=== PATIENT | female | born 1970 | race Caucasian/White ===

== ENCOUNTER → 2017-02-04 | Outpatient (CLI) | payer MEDICARE, BC, MEDICAID ==
[~2017-02-04] MED LIST: ASPI-621 PO; ATOR20TA9 PO; CABE0.5T PO; CARV3.122 PO; CRAN300T PO; DARB60VI SQ; ERGO500047 PO; ISOS30TA8 PO; LINA5TAB PO; LOSA50TA6 PO; OMEP-110 PO; PIOG15TA2 PO; SEVE800T8 PO; VITA1TAB19 PO
== END | disposition home or self-care (01) ==
LOC: CFH 08:47
PROVIDERS: ATTEND Internal Medicine
DX: I08.3 Combined rheumatic disorders of mitral, aortic and tricuspid valves (principal); I37.1 Nonrheumatic pulmonary valve insufficiency; I51.7 Cardiomegaly; I10 Essential (primary) hypertension; E11.9 Type 2 diabetes mellitus without complications; Z99.2 Dependence on renal dialysis
CPT/HCPCS: 93306

== ENCOUNTER → 2017-07-11 | Outpatient (CLI) | payer MEDICARE, BC, MEDICAID | END | disposition home or self-care (01) | LOC: CFH 13:08 | PROVIDERS: ATTEND Obstetrics & Gynecology Maternal & Fetal Medicine | DX: Z12.31 Encounter for screening mammogram for malignant neoplasm of breast (principal) | CPT/HCPCS: G0202 ==

== ENCOUNTER 2017-08-25 10:05 | Inpatient (IN) | payer MEDICARE, BC, MEDICAID ==
[~2017-08-25] VITALS: Ht 157.5 cm; Wt 57.4 kg
[2017-08-25] MEDS ORDERED: ACETAMINOPHEN 325 MG TABLET PO ONE (11:00)
[2017-08-25 11:16] LABS: HEMATOCRIT 36.1 % (34.6-47.8); HEMOGLOBIN 12.3 g/dL (11.7-16.4); WHITE BLOOD COUNT 13.3 x10^3/uL (3.4-10)
[2017-08-25 11:30] LABS: BLOOD UREA NITROGEN 27 mg/dL (7-18)
[2017-08-25 11:33] LABS: DIFF TOTAL CELLS COUNTED 100 CELL DIFF
[2017-08-25 11:34] LABS: VERIFY COUNTS? YES
[2017-08-25 11:36] LABS: ASPARTATE AMINO TRANSFERASE 106 U/L (15-37)
[2017-08-25] MEDS ORDERED: CEFTRIAXONE PMX 1GM/50ML 50 ML IVPB ONE (12:00)
[2017-08-25] MEDS ORDERED: SODIUM CHLORIDE 0.9% 1,000ML IVBOLUS ONE (12:00)
[2017-08-25] MEDS ORDERED: CEFTRIAXONE PMX 1GM/50ML 50 ML ONE (12:51)
[2017-08-25 13:25] VITALS: BP 106/71
[2017-08-25] MEDS ORDERED: SODIUM CHLORIDE 0.9% 1,000 ML IV SCH (13:55)
[2017-08-25] MEDS ORDERED: POLYETHYLENE GLYCOL 17 GM PACKET PO PRN (14:00)
[2017-08-25] MEDS ORDERED: BISACODYL 10 MG SUPP PR PRN (14:00)
[2017-08-25] MEDS ORDERED: LABETALOL 5MG/ML, 20ML IVPush PRN (14:00)
[2017-08-25] MEDS ORDERED: hydrALAzine 20 MG/ML, 1ML IVPush PRN (14:00)
[2017-08-25] MEDS ORDERED: HYDROmorphone 2 MG/ML, 1ML IVPush PRN (14:00)
[2017-08-25] MEDS ORDERED: PHARMACY MAY ADJ FOR RENAL FX MC PRN (14:00)
[2017-08-25] MEDS ORDERED: SENN1TAB7 PO (14:29)
[2017-08-25] MEDS ORDERED: PRED5TAB PO (14:29)
[2017-08-25] MEDS ORDERED: CHOL100012 PO (14:29)
[2017-08-25] MEDS ORDERED: CARV3.122 PO (14:29)
[2017-08-25] MEDS ORDERED: MULT-108 PO (14:29)
[2017-08-25] MEDS ORDERED: METF500T4 PO (14:29)
[2017-08-25] MEDS ORDERED: TACR1CAP2 PO (14:29)
[2017-08-25] MEDS ORDERED: MYCO250C4 PO (14:29)
[2017-08-25] MEDS ORDERED: LIRA0.6P2 IJ (14:29)
[2017-08-25] MEDS ORDERED: PANT20TA3 PO (14:29)
[2017-08-25] MEDS ORDERED: GLUCAGON 1 MG IM PRN (14:30)
[2017-08-25] MEDS ORDERED: DEXTROSE 50%, 50ML SYRINGE IVPush PRN (14:30)
[2017-08-25] MEDS ORDERED: DEXTROSE 4 GM TAB.CHEW PO PRN (14:30)
[2017-08-25] MEDS: PIPERACILLIN/TAZO/PMX 4.5GM 100 ML IV SCH ×2 (15:10→20:37)
[2017-08-25] MEDS: HEPARIN 5,000 UNITS/ML, 1ML SQ SCH ×2 (15:22→20:38)
[2017-08-25 15:30] LABS: BLOOD UREA NITROGEN 28 mg/dL (7-18)
[2017-08-25] MEDS: INSULIN ASPART 100 UNITS/ML, PEN SQ-INSULIN SCH ×2 (15:36→20:51)
[2017-08-25] MEDS: ONDANSETRON 2MG/ML, 2ML IVPush PRN (15:51)
[2017-08-25] MEDS ORDERED: CARVEDILOL 3.125 MG TABLET PO SCH (18:00)
[2017-08-25] MEDS: HYDROcodone/APAP 5/325 TABLET PO PRN ×2 (18:07→23:09)
[2017-08-25 19:36] VITALS: BP 95/58
[2017-08-25] MEDS: TACROLIMUS 1 MG CAPSULE PO SCH (20:37)
[2017-08-25] MEDS: SODIUM CHLORIDE FLUSH 10ML SYR IVF SCH (20:37)
[2017-08-25] MEDS: ATORVASTATIN 20 MG TABLET PO SCH (20:37)
[2017-08-25] MEDS ORDERED: MYCOPHENOLATE PO SCH (21:00)
[2017-08-25 21:46] LABS: BLOOD UREA NITROGEN 25 mg/dL (7-18)
[2017-08-26] MEDS: PIPERACILLIN/TAZO/PMX 4.5GM 100 ML IV SCH ×4 (02:06→22:34)
[2017-08-26 02:09] VITALS: BP 94/59
[2017-08-26] MEDS: ACETAMINOPHEN 325 MG TABLET PO PRN (02:09)
[2017-08-26 04:41] LABS: HEMOGLOBIN 10.4 g/dL (11.7-16.4); WHITE BLOOD COUNT 8.9 x10^3/uL (3.4-10)
[2017-08-26 04:49] LABS: BLOOD UREA NITROGEN 22 mg/dL (7-18)
[2017-08-26 04:52] LABS: ASPARTATE AMINO TRANSFERASE 62 U/L (15-37)
[2017-08-26] MEDS: HEPARIN 5,000 UNITS/ML, 1ML SQ SCH ×3 (06:16→23:58)
[2017-08-26] MEDS: INSULIN ASPART 100 UNITS/ML, PEN SQ-INSULIN SCH ×4 (07:00→21:03)
[2017-08-26 07:09] VITALS: BP 94/57
[2017-08-26] MEDS: ASPIRIN 81 MG TABLET EC PO SCH (08:10)
[2017-08-26] MEDS: SODIUM CHLORIDE FLUSH 10ML SYR IVF SCH ×2 (08:10→21:03)
[2017-08-26] MEDS: HYDROcodone/APAP 5/325 TABLET PO PRN ×2 (08:10→19:50)
[2017-08-26] MEDS: MULTIVITAMIN 1 TABLET PO SCH (08:10)
[2017-08-26] MEDS: DOCUSATE 100 MG CAPSULE PO SCH (08:10)
[2017-08-26] MEDS: CHOLECALCIFEROL 1,000 UNIT TABLET PO SCH (08:10)
[2017-08-26] MEDS: ONDANSETRON 2MG/ML, 2ML IVPush PRN ×2 (08:18→17:38)
[2017-08-26] MEDS: TACROLIMUS 1 MG CAPSULE PO SCH ×2 (08:57→21:02)
[2017-08-26] MEDS ORDERED: MAGNESIUM SULFATE PMX 4GM/100M 100 ML IV ONE (12:00)
[2017-08-26] MEDS ORDERED: SODIUM PHOSPHATE 30 MMOL in SODIUM CHLORIDE 0.9% 500 ML IV ONE (12:00)
[2017-08-26 13:13] VITALS: BP 113/73
[2017-08-26 14:48] VITALS: BP 104/66
[2017-08-26 20:09] VITALS: BP 118/75
[2017-08-26] MEDS: ATORVASTATIN 20 MG TABLET PO SCH (21:02)
[2017-08-26] MEDS: SODIUM CHLORIDE 0.9% 1,000 ML IV SCH (21:10)
[2017-08-27 01:59] VITALS: BP 113/76
[2017-08-27] MEDS: PIPERACILLIN/TAZO/PMX 4.5GM 100 ML IV SCH ×3 (04:07→19:30)
[2017-08-27] MEDS: SODIUM CHLORIDE 0.9% 1,000 ML IV SCH (04:07)
[2017-08-27 07:53] VITALS: BP 144/92
[2017-08-27 08:03] LABS: ASPARTATE AMINO TRANSFERASE 37 U/L (15-37); BLOOD UREA NITROGEN 15 mg/dL (7-18)
[2017-08-27] MEDS: ASPIRIN 81 MG TABLET EC PO SCH (09:00)
[2017-08-27] MEDS ORDERED: CABERGOLINE 0.5 MG TABLET PO SCH (09:00)
[2017-08-27] MEDS: ONDANSETRON 2MG/ML, 2ML IVPush PRN (09:51)
[2017-08-27] MEDS: HEPARIN 5,000 UNITS/ML, 1ML SQ SCH ×3 (09:51→23:56)
[2017-08-27] MEDS: ACETAMINOPHEN 325 MG TABLET PO PRN (09:51)
[2017-08-27] MEDS: INSULIN ASPART 100 UNITS/ML, PEN SQ-INSULIN SCH ×4 (09:51→21:00)
[2017-08-27] MEDS: SODIUM BICARBONATE 650 MG TABLET PO SCH ×2 (09:51→21:21)
[2017-08-27] MEDS: CHOLECALCIFEROL 1,000 UNIT TABLET PO SCH (09:52)
[2017-08-27] MEDS: DOCUSATE 100 MG CAPSULE PO SCH (09:52)
[2017-08-27] MEDS: MULTIVITAMIN 1 TABLET PO SCH (09:52)
[2017-08-27] MEDS: SODIUM CHLORIDE FLUSH 10ML SYR IVF SCH ×2 (09:53→21:20)
[2017-08-27] MEDS: TACROLIMUS 1 MG CAPSULE PO SCH ×2 (09:59→21:20)
[2017-08-27 10:05] LABS: HEMATOCRIT 36.1 % (34.6-47.8); HEMOGLOBIN 12.1 g/dL (11.7-16.4); WHITE BLOOD COUNT 6.7 x10^3/uL (3.4-10)
[2017-08-27 15:08] VITALS: BP 145/88
[2017-08-27] MEDS: HYDROcodone/APAP 5/325 TABLET PO PRN ×2 (18:05→23:33)
[2017-08-27 19:05] VITALS: BP 153/91
[2017-08-27] MEDS: ATORVASTATIN 20 MG TABLET PO SCH (21:21)
[2017-08-27] MEDS: CARVEDILOL 3.125 MG TABLET PO SCH (21:21)
[2017-08-28 01:16] VITALS: BP 147/78
[2017-08-28] MEDS: PIPERACILLIN/TAZO/PMX 4.5GM 100 ML IV SCH ×2 (03:43→11:01)
[2017-08-28 05:36] LABS: HEMATOCRIT 34.2 % (34.6-47.8); HEMOGLOBIN 11.6 g/dL (11.7-16.4); WHITE BLOOD COUNT 4.7 x10^3/uL (3.4-10)
[2017-08-28 05:40] LABS: BLOOD UREA NITROGEN 14 mg/dL (7-18)
[2017-08-28 07:00] VITALS: BP 128/78
[2017-08-28] MEDS: SODIUM CHLORIDE FLUSH 10ML SYR IVF SCH ×2 (08:26→21:00)
[2017-08-28] MEDS: INSULIN ASPART 100 UNITS/ML, PEN SQ-INSULIN SCH ×4 (08:26→21:30)
[2017-08-28] MEDS: HEPARIN 5,000 UNITS/ML, 1ML SQ SCH ×2 (08:26→17:16)
[2017-08-28] MEDS: DOCUSATE 100 MG CAPSULE PO SCH (08:27)
[2017-08-28] MEDS: CARVEDILOL 3.125 MG TABLET PO SCH ×2 (08:27→21:10)
[2017-08-28] MEDS: ASPIRIN 81 MG TABLET EC PO SCH (08:27)
[2017-08-28] MEDS: CHOLECALCIFEROL 1,000 UNIT TABLET PO SCH (08:27)
[2017-08-28] MEDS: MULTIVITAMIN 1 TABLET PO SCH (08:27)
[2017-08-28] MEDS: TACROLIMUS 1 MG CAPSULE PO SCH (08:28)
[2017-08-28 08:29] VITALS: BP 165/99
[2017-08-28] MEDS: ACETAMINOPHEN 325 MG TABLET PO PRN (11:44)
[2017-08-28 13:02] VITALS: BP 154/88
[2017-08-28 19:56] VITALS: BP 145/87
[2017-08-28] MEDS: ATORVASTATIN 20 MG TABLET PO SCH (21:10)
[2017-08-28] MEDS: HYDROcodone/APAP 5/325 TABLET PO PRN (21:55)
[2017-08-29 01:47] VITALS: BP 151/83
[2017-08-29] MEDS: ACETAMINOPHEN 325 MG TABLET PO PRN (06:25)
[2017-08-29] MEDS ORDERED: TACROLIMUS 1 MG CAPSULE PO SCH (07:00)
[2017-08-29 07:52] VITALS: BP 139/81
[2017-08-29] MEDS: HEPARIN 5,000 UNITS/ML, 1ML SQ SCH ×4 (08:00→21:36)
[2017-08-29] MEDS: INSULIN ASPART 100 UNITS/ML, PEN SQ-INSULIN SCH ×4 (08:36→21:17)
[2017-08-29] MEDS: SODIUM CHLORIDE FLUSH 10ML SYR IVF SCH ×2 (08:37→21:00)
[2017-08-29] MEDS: DOCUSATE 100 MG CAPSULE PO SCH (08:38)
[2017-08-29] MEDS: LEVOFLOXACIN 750 MG TABLET PO SCH (08:39)
[2017-08-29] MEDS: MULTIVITAMIN 1 TABLET PO SCH (08:39)
[2017-08-29] MEDS: CARVEDILOL 3.125 MG TABLET PO SCH ×2 (08:39→21:16)
[2017-08-29] MEDS: CHOLECALCIFEROL 1,000 UNIT TABLET PO SCH (08:40)
[2017-08-29] MEDS: ASPIRIN 81 MG TABLET EC PO SCH (08:40)
[2017-08-29] MEDS: HYDROcodone/APAP 5/325 TABLET PO PRN (12:49)
[2017-08-29 13:45] LABS: BLOOD UREA NITROGEN 15 mg/dL (7-18)
[2017-08-29 14:29] VITALS: BP 149/90
[2017-08-29 19:02] VITALS: BP 159/91
[2017-08-29] MEDS: ATORVASTATIN 20 MG TABLET PO SCH (21:16)
[2017-08-30] MEDS: HYDROcodone/APAP 5/325 TABLET PO PRN (01:12)
[2017-08-30 02:00] VITALS: BP 160/85
[2017-08-30] MEDS: HEPARIN 5,000 UNITS/ML, 1ML SQ SCH (05:48)
[2017-08-30] MEDS ORDERED: TACROLIMUS 1 MG CAPSULE PO SCH (07:00)
[2017-08-30 08:02] VITALS: BP 147/84
[2017-08-30] MEDS: INSULIN ASPART 100 UNITS/ML, PEN SQ-INSULIN SCH (08:59)
[2017-08-30] MEDS: SODIUM CHLORIDE FLUSH 10ML SYR IVF SCH (08:59)
[2017-08-30] MEDS: CARVEDILOL 3.125 MG TABLET PO SCH (09:00)
[2017-08-30] MEDS: DOCUSATE 100 MG CAPSULE PO SCH (09:00)
[2017-08-30] MEDS ORDERED: CABERGOLINE 0.5 MG TABLET PO SCH (09:00)
[2017-08-30] MEDS: ASPIRIN 81 MG TABLET EC PO SCH (09:01)
[2017-08-30] MEDS: MULTIVITAMIN 1 TABLET PO SCH (09:01)
[2017-08-30] MEDS: CHOLECALCIFEROL 1,000 UNIT TABLET PO SCH (09:01)
[2017-08-30] MEDS: LEVOFLOXACIN 750 MG TABLET PO SCH (09:01)
[2017-08-30] MEDS ORDERED: LEVO750T26 PO (09:15)
[2017-08-30] MEDS ORDERED: TACR1CAP4 PO (09:15)
== END 2017-08-30 12:30 | disposition home or self-care (01) | DRG 871 ==
LOC: ED 12:11 → 3NW 12:12 → ED 12:23 → 3NW 12:43 → ED 12:43 → 3NW 13:18 → 4WST 08-26 14:17
PROVIDERS: ADMIT Internal Medicine; ATTEND Internal Medicine
DX: A41.9 Sepsis, unspecified organism (principal); N18.6 End stage renal disease; I13.2 Hypertensive heart and chronic kidney disease with heart failure and with stage 5 chronic kidney disease, or end stage renal disease; I82.622 Acute embolism and thrombosis of deep veins of left upper extremity; N17.9 Acute kidney failure, unspecified; T86.13 Kidney transplant infection; T82.868A Thrombosis due to vascular prosthetic devices, implants and grafts, initial encounter; E87.1 Hypo-osmolality and hyponatremia; N10 Acute pyelonephritis; N03.9 Chronic nephritic syndrome with unspecified morphologic changes; E11.65 Type 2 diabetes mellitus with hyperglycemia; E78.5 Hyperlipidemia, unspecified; I50.9 Heart failure, unspecified; E11.22 Type 2 diabetes mellitus with diabetic chronic kidney disease; E83.42 Hypomagnesemia; B96.20 Unspecified Escherichia coli [E. coli] as the cause of diseases classified elsewhere; E83.39 Other disorders of phosphorus metabolism; B96.89 Other specified bacterial agents as the cause of diseases classified elsewhere; I25.10 Atherosclerotic heart disease of native coronary artery without angina pectoris; Z88.0 Allergy status to penicillin; Z99.2 Dependence on renal dialysis; Z90.49 Acquired absence of other specified parts of digestive tract
CPT/HCPCS: 36415; 76776; 80048; 80053; 80197; 81001; 82570; 82962; 83605; 83735; 84100; 84300; 84550; 84703; 85025; 87040; 87077; 87086; 87186; 99285; J0696; J1170; J1644; J1815; J2405; J2543; J7507; J7518; J3475; J7030; J7040; J7512

== ENCOUNTER → 2017-11-28 | Outpatient (CLI) | payer MEDICARE, BC ==
[~2017-11-28] MED LIST changes: +CHOL100012 PO; +LEVO750T26 PO; +LIRA0.6P2 IJ; +METF500T4 PO; +MULT-108 PO; +MYCO250C4 PO; +PANT20TA3 PO; +PRED5TAB PO; +SENN1TAB7 PO; +TACR1CAP2 PO; +TACR1CAP4 PO
== END | disposition home or self-care (01) ==
LOC: CFH 14:49
PROVIDERS: ATTEND Neurological Surgery
DX: D35.2 Benign neoplasm of pituitary gland (principal); R90.82 White matter disease, unspecified; Z94.0 Kidney transplant status
CPT/HCPCS: 70551

== ENCOUNTER 2018-04-12 09:33 | Emergency (ER) | payer MEDICARE, BC ==
[~2018-04-12] VITALS: Ht 157.5 cm; Wt 45.4 kg
[~2018-04-12 09:33] MED LIST changes: -METF500T4 PO; +METF500T5 PO; -PIOG15TA2 PO; +PIOG15TA66 PO
[2018-04-12 09:40] VITALS: BP 123/82
[2018-04-12] MEDS ORDERED: HYDROmorphone 2 MG/ML, 1ML ONE (09:56)
[2018-04-12] MEDS ORDERED: ONDANSETRON ODT 4 MG PO ONE (10:00)
[2018-04-12] MEDS ORDERED: HYDROmorphone 1 MG/ML, 1ML IM ONE (10:00)
[2018-04-12] MEDS ORDERED: ONDANSETRON ODT 4 MG ONE (10:01)
[2018-04-12 10:46] LABS: BASOPHILS # (AUTO) 0.03 x10^3/uL (0-0.1); BASOPHILS % (AUTO) 1 % (0-1); EOSINOPHILS # (AUTO) 0.07 x10^3/uL (0-0.4); EOSINOPHILS % (AUTO) 2 % (1-7); LYMPHOCYTES # (AUTO) 0.41 x10^3/uL (1-3.4); LYMPHOCYTES % (AUTO) 9 % (22-44); MD NO; MEAN CORPUSCULAR HEMOGLOBIN 31.7 pg (27.0-34.8); MEAN CORPUSCULAR HGB CONC 33.9 g/dL (32.4-35.8); MEAN CORPUSCULAR VOLUME 93.6 fL (80-100); MEAN PLATELET VOLUME 8.4 fL (7.4-10.4); MONOCYTES % (AUTO) 11 % (2-9); NEUTROPHILS # (AUTO) 3.54 x10^3/uL (1.8-6.8); NEUTROPHILS % (AUTO) 78 % (42-75); PLATELET COUNT 200 x10^3/uL (130-400); RED BLOOD COUNT 3.96 x10^6/uL (3.82-5.3); RED CELL DISTRIBUTION WIDTH 13.7 % (9.6-15.2)
[2018-04-12 10:53] LABS: ALBUMIN 3.7 g/dL (3.4-5.0); ANION GAP 8 mmol/L (5-15); CALCIUM 9.6 mg/dL (8.5-10.1); CHLORIDE 104 mmol/L (98-107); CREATININE 0.79 mg/dL (0.55-1.02)
== END 2018-04-12 12:15 | disposition home or self-care (01) ==
LOC: ED 11:18
DX: S09.90XA Unspecified injury of head, initial encounter (principal); S46.912A Strain of unspecified muscle, fascia and tendon at shoulder and upper arm level, left arm, initial encounter; S66.912A Strain of unspecified muscle, fascia and tendon at wrist and hand level, left hand, initial encounter; S70.02XA Contusion of left hip, initial encounter; S80.02XA Contusion of left knee, initial encounter; I13.0 Hypertensive heart and chronic kidney disease with heart failure and stage 1 through stage 4 chronic kidney disease, or unspecified chronic kidney disease; I50.9 Heart failure, unspecified; N18.9 Chronic kidney disease, unspecified; E11.22 Type 2 diabetes mellitus with diabetic chronic kidney disease; Z99.2 Dependence on renal dialysis; E11.65 Type 2 diabetes mellitus with hyperglycemia; Z88.0 Allergy status to penicillin; W01.118A Fall on same level from slipping, tripping and stumbling with subsequent striking against other sharp object, initial encounter; Y93.01 Activity, walking, marching and hiking; Y92.096 Garden or yard of other non-institutional residence as the place of occurrence of the external cause; Y99.8 Other external cause status
CPT/HCPCS: 29260; 36415; 70450; 70486; 73030; 73110; 73130; 73610; 73630; 80048; 82040; 85025; 96372; 99285; J1170; Q0162

== ENCOUNTER 2019-09-05 14:05 | Emergency (ER) | payer MEDICARE, BC ==
[~2019-09-05] VITALS: Ht 157.5 cm; Wt 47.1 kg
[~2019-09-05 14:05] MED LIST changes: -ASPI-621 PO; +ASPI81TA45 PO; +ATOR20TA37 PO; -ATOR20TA9 PO; +LOSA50TA14 PO; -LOSA50TA6 PO; +METF500T17 PO; -METF500T5 PO; +SENN-177 PO; -SENN1TAB7 PO
--- NOTE | 2019-09-05 14:48 | NUR ---
pt to ed c/o cough, tightness in chest when coughing, sob when coughing and walking. x1 wk, came to ed bc sx would not go away. denies cp. 98% RA, does not appear in acute distress. lungs ctab. denies fevers, c/o chills. denies n/v/d. flu shot this year. nsr onmonitor. awaiting md yun.
[2019-09-05] MEDS ORDERED: INSU100C9 SQ-INSULIN (14:50)
[2019-09-05] MEDS ORDERED: ALBUTEROL SULFATE 2.5 MG/3 ML ONE (15:16)
[2019-09-05 15:28] LABS: RAPID INFLUENZA A Negative (Negative); RAPID INFLUENZA B Negative (Negative)
[2019-09-05] MEDS ORDERED: BENZONATATE 100 MG CAPSULE PO ONE (15:30)
[2019-09-05] MEDS ORDERED: ALBUTEROL SULFATE 2.5 MG/3 ML NPPB ONE (15:30)
[2019-09-05 15:45] LABS: BASOPHILS # (AUTO) 0.01 x10^3/uL (0-0.1); BASOPHILS % (AUTO) 0 % (0-1); EOSINOPHILS # (AUTO) 0.15 x10^3/uL (0-0.4); EOSINOPHILS % (AUTO) 4 % (1-7); LYMPHOCYTES # (AUTO) 0.71 x10^3/uL (1-3.4); LYMPHOCYTES % (AUTO) 17 % (22-44); MD NO; MEAN CORPUSCULAR HGB CONC 31.6 g/dL (32.4-35.8); MEAN CORPUSCULAR VOLUME 85.4 fL (80-100); MEAN PLATELET VOLUME 8.4 fL (7.4-10.4); MONOCYTES # (AUTO) 0.39 x10^3/uL (0.2-0.8); MONOCYTES % (AUTO) 9 % (2-9); NEUTROPHILS # (AUTO) 2.97 x10^3/uL (1.8-6.8); NEUTROPHILS % (AUTO) 70 % (42-75); PLATELET COUNT 225 x10^3/uL (130-400); RED BLOOD COUNT 4.38 x10^6/uL (3.82-5.3); RED CELL DISTRIBUTION WIDTH 16.2 % (9.6-15.2)
[2019-09-05] MEDS ORDERED: BENZONATATE 100 MG CAPSULE ONE (15:54)
[2019-09-05 15:56] VITALS: BP 109/70
--- NOTE | 2019-09-05 15:57 | NUR ---
bright per mar. sts felt better after breathing tx, now feels same. vss. call mahajan in reach. NAD.
[2019-09-05 15:59] LABS: ALBUMIN 3.9 g/dL (3.4-5.0); ANION GAP 8 mmol/L (5-15); CALCIUM 10.1 mg/dL (8.5-10.1); CHLORIDE 104 mmol/L (98-107); CREATININE 0.94 mg/dL (0.55-1.02)
[2019-09-05] MEDS ORDERED: DEXAMETHASONE 4 MG TABLET ONE ×2 (16:17→16:23)
[2019-09-05] MEDS ORDERED: DEXAMETHASONE 4 MG TABLET PO ONE (16:30)
== END 2019-09-05 16:28 | disposition home or self-care (01) ==
LOC: ED 16:22
DX: J20.9 Acute bronchitis, unspecified (principal); R06.00 Dyspnea, unspecified; E87.1 Hypo-osmolality and hyponatremia; E11.22 Type 2 diabetes mellitus with diabetic chronic kidney disease; I13.2 Hypertensive heart and chronic kidney disease with heart failure and with stage 5 chronic kidney disease, or end stage renal disease; N18.6 End stage renal disease; I50.9 Heart failure, unspecified; Z99.2 Dependence on renal dialysis
CPT/HCPCS: 36415; 71045; 80048; 82040; 85025; 87400; 93005; 94640; 99284; J7613

== ENCOUNTER 2021-04-02 10:01 | Emergency (ER) | payer BC, MEDICARE, MEDICAID ==
[~2021-04-02] VITALS: Ht 157.5 cm; Wt 49.4 kg
[~2021-04-02 10:01] MED LIST changes: +INSU100C9 SQ-INSULIN; -PANT20TA3 PO; +PANT20TA4 PO; -TACR1CAP4 PO; +TACR1CAP5 PO
--- NOTE | 2021-04-02 10:34 | NUR ---
pt presents to ED from UC with c/o fever, abd pain in all quadrants, painful urination, and cough. pt had kidney transplant on R side 4 years ago and has AV fistula on L arm. pt a&o, resps even and unlabored, nadn.
--- NOTE | 2021-04-02 11:14 | NUR ---
dez Joiner at bedside for initial eval/assessment
[2021-04-02 11:27] LABS: MICROSCOPIC NOT IND
[2021-04-02] MEDS ORDERED: SODIUM CHLORIDE FLUSH 10ML SYR IVF ONE (11:30)
[2021-04-02] MEDS ORDERED: PHENAZOPYRIDINE 200 MG TABLET ONE (11:37)
[2021-04-02 11:48] LABS: BASOPHILS % (AUTO) 0 % (0-1); EOSINOPHILS % (AUTO) 0 % (1-7); LYMPHOCYTES % (AUTO) 14 % (22-44); MEAN CORPUSCULAR HEMOGLOBIN 29.4 pg (27.0-34.8); MEAN CORPUSCULAR HGB CONC 33.2 g/dL (32.4-35.8); MEAN PLATELET VOLUME 8.3 fL (7.4-10.4); MONOCYTES % (AUTO) 8 % (2-9); NEUTROPHILS % (AUTO) 78 % (42-75); PLATELET COUNT 174 x10^3/uL (130-400); RED BLOOD COUNT 4.34 x10^6/uL (3.82-5.3); RED CELL DISTRIBUTION WIDTH 13.2 % (9.6-15.2)
[2021-04-02 11:56] LABS: ALANINE AMINOTRANSFERASE 26 U/L (12-78); ALBUMIN 3.9 g/dL (3.4-5.0); ANION GAP 5 mmol/L (5-15); CALCIUM 10.3 mg/dL (8.5-10.1); CHLORIDE 103 mmol/L (98-107)
[2021-04-02 11:59] LABS: ALKALINE PHOSPHATASE 83 U/L (45-117); BILIRUBIN,TOTAL 0.4 mg/dL (0.2-1.0); CREATININE 0.81 mg/dL (0.55-1.02); TOTAL PROTEIN 7.6 g/dL (6.4-8.2)
[2021-04-02] MEDS ORDERED: PHENAZOPYRIDINE 200 MG TABLET PO ONE (12:00)
[2021-04-02] MEDS ORDERED: SODIUM CHLORIDE 0.9% 1,000ML IVBOLUS ONE (12:30)
--- NOTE | 2021-04-02 13:00 | NUR ---
pt to ct
--- NOTE | 2021-04-02 13:17 | NUR ---
pt back from ct
[2021-04-02] MEDS ORDERED: OMNIPAQUE 350 MG/ML, 75ML BOTTLE ONE (13:30)
--- NOTE | 2021-04-02 13:47 | NUR ---
Pt back restingin bed after steady ambulation to bathroom.
[2021-04-02 14:37] VITALS: BP 129/77
--- NOTE | 2021-04-02 15:19 | NUR ---
dez Joiner at bedside to discuss poc.
--- NOTE | 2021-04-02 15:35 | NUR ---
Snack and water provided. DC instructions reviewed
== END 2021-04-02 16:13 | disposition home or self-care (01) ==
LOC: ED 13:34
DX: R10.31 Right lower quadrant pain (principal); R50.9 Fever, unspecified; D84.9 Immunodeficiency, unspecified; I11.0 Hypertensive heart disease with heart failure; I50.9 Heart failure, unspecified; E11.9 Type 2 diabetes mellitus without complications; Z88.0 Allergy status to penicillin
CPT/HCPCS: 36415; 71045; 74177; 80053; 81003; 83605; 84145; 84703; 85025; 87040; 96360; 99285; J7030; Q9967

== ENCOUNTER 2021-04-09 16:14 | Inpatient (IN) | payer BC, MEDICARE ==
[~2021-04-09] VITALS: Ht 157.5 cm; Wt 54.6 kg
[2021-04-09] MEDS ORDERED: SODIUM CHLORIDE 0.9% 1,000ML IVBOLUS ONE ×2 (17:00→18:00)
--- NOTE | 2021-04-09 17:19 | NUR ---
med request to pharm for mdi. as
[2021-04-09 17:40] LABS: ALANINE AMINOTRANSFERASE 26 U/L (12-78); ANION GAP 9 mmol/L (5-15); CALCIUM 8.6 mg/dL (8.5-10.1); CHLORIDE 98 mmol/L (98-107); CREATININE 1.09 mg/dL (0.55-1.02)
[2021-04-09 17:42] LABS: ALKALINE PHOSPHATASE 91 U/L (45-117); BILIRUBIN,TOTAL 0.4 mg/dL (0.2-1.0); TOTAL PROTEIN 6.7 g/dL (6.4-8.2)
[2021-04-09 17:42] LABS: BASOPHILS % (AUTO) 0 % (0-1); EOSINOPHILS % (AUTO) 0 % (1-7); LYMPHOCYTES % (AUTO) 5 % (22-44); MEAN CORPUSCULAR HEMOGLOBIN 29.2 pg (27.0-34.8); MEAN CORPUSCULAR HGB CONC 34.1 g/dL (32.4-35.8); MEAN PLATELET VOLUME 7.8 fL (7.4-10.4); MONOCYTES % (AUTO) 2 % (2-9); NEUTROPHILS % (AUTO) 92 % (42-75); PLATELET COUNT 221 x10^3/uL (130-400); RED BLOOD COUNT 4.13 x10^6/uL (3.82-5.3); RED CELL DISTRIBUTION WIDTH 13.2 % (9.6-15.2)
[2021-04-09] MEDS: ALBUTEROL HFA 90 MCG/SPRAY INH PRN (17:45)
[2021-04-09] MEDS ORDERED: CEFTRIAXONE 1,000 MG in DEXTROSE 5% 50 ML IVPB ONE (18:00)
--- NOTE | 2021-04-09 18:32 | NUR ---
had v long discussion w pt and daughter via phone re admission. dr araiza did as well. pt wants to go home with abx rx even w low sodium. abx per nov, 1st liter still infusing, plan 2nd and then dc home. vss. pt ambulated in hallway, o2 remained 96+ after on room air. as
--- NOTE | 2021-04-09 18:56 | NUR ---
RECEIVED REPORT FROM ERAN SMITH. TRANSFER OF CARE.
--- NOTE | 2021-04-09 19:01 | NUR ---
report to keyla dobson. as
--- NOTE | 2021-04-09 19:06 | NUR ---
PT RESTING ON GURNEY RESP EVEN AND UNLABORED NADN, VSS NO NEEDS AT THIS TIME.
--- NOTE | 2021-04-09 19:38 | NUR ---
PT AMBULATED TO BATHROOM AND BACK 30 MINS AGO. PT WAS VERY SOB WHEN BACK IN BED. NOTIFIED. TM
[2021-04-09] MEDS ORDERED: SEMA0.25 INJ (19:45)
--- NOTE | 2021-04-09 21:15 | NUR ---
gave report to cherri dobson.
[2021-04-09] MEDS ORDERED: ZOLPIDEM 5MG TABLET PO PRN (21:30)
[2021-04-09] MEDS ORDERED: hydrALAzine 20 MG/ML, 1ML IVPush PRN (21:30)
[2021-04-09] MEDS ORDERED: METHOCARBAMOL 500 MG TABLET PO PRN (21:30)
[2021-04-09] MEDS ORDERED: morphine SULFATE 10 MG/ML, 1ML IVPush PRN (21:30)
[2021-04-09] MEDS: TACROLIMUS 1 MG CAPSULE PO SCH (21:30)
[2021-04-09] MEDS ORDERED: ACETAMINOPHEN 325 MG TABLET PO PRN ×2 (21:30)
[2021-04-09] MEDS: ATORVASTATIN 20 MG TABLET PO SCH (21:30)
[2021-04-09] MEDS ORDERED: PHARMACY MAY ADJ FOR RENAL FX MC PRN (21:30)
[2021-04-09 21:48] VITALS: BP 135/80
[2021-04-09] MEDS: SODIUM CHLORIDE 0.9% 1,000 ML IV SCH (22:18)
[2021-04-09] MEDS: DOXYCYCLINE 100 MG in DEXTROSE 5% 250 ML IV SCH (22:18)
[2021-04-09] MEDS: BENZONATATE 100 MG CAPSULE PO SCH (22:19)
[2021-04-09] MEDS: ENOXAPARIN 40 MG/0.4 ML SQ SCH (22:20)
[2021-04-10 01:00] VITALS: BP 138/88
[2021-04-10 01:07] VITALS: BP 135/80
[2021-04-10] MEDS: HYDROcodone/APAP 5/325 TABLET PO PRN ×2 (03:48→08:59)
[2021-04-10 06:07] LABS: BASOPHILS % (AUTO) 0 % (0-1); EOSINOPHILS % (AUTO) 0 % (1-7); LYMPHOCYTES % (AUTO) 9 % (22-44); MEAN CORPUSCULAR HEMOGLOBIN 29.3 pg (27.0-34.8); MEAN PLATELET VOLUME 7.6 fL (7.4-10.4); MONOCYTES % (AUTO) 3 % (2-9); NEUTROPHILS % (AUTO) 88 % (42-75); PLATELET COUNT 187 x10^3/uL (130-400); RED BLOOD COUNT 3.73 x10^6/uL (3.82-5.3); RED CELL DISTRIBUTION WIDTH 13.3 % (9.6-15.2)
[2021-04-10 06:40] LABS: ANION GAP 7 mmol/L (5-15); CALCIUM 8.1 mg/dL (8.5-10.1); CHLORIDE 109 mmol/L (98-107)
[2021-04-10 08:00] VITALS: BP 125/78
[2021-04-10] MEDS: INSULIN REGULAR 100 UNITS/ML, 3ML VIAL SQ-INSULIN SCH ×8 (08:34→20:14)
[2021-04-10] MEDS: ASCORBIC ACID 500 MG TABLET PO SCH ×2 (08:36→20:07)
[2021-04-10] MEDS: SENNA/DOCUSATE TABLET PO SCH (08:36)
[2021-04-10] MEDS: ZINC SULFATE 220 MG CAPSULE PO SCH (08:37)
[2021-04-10] MEDS: CHOLECALCIFEROL 1,000 UNIT TABLET PO SCH (08:37)
[2021-04-10] MEDS: metFORMIN 500 MG TABLET PO SCH ×2 (08:37→20:07)
[2021-04-10] MEDS: ASPIRIN 81 MG TABLET EC PO SCH (08:37)
[2021-04-10] MEDS: BENZONATATE 100 MG CAPSULE PO SCH ×3 (08:38→20:07)
[2021-04-10] MEDS: DEXAMETHASONE 4 MG TABLET PO SCH ×2 (08:39→16:48)
[2021-04-10] MEDS: PANTOPRAZOLE 20MG TABLET PO SCH (08:39)
[2021-04-10] MEDS: DOXYCYCLINE 100 MG in DEXTROSE 5% 250 ML IV SCH ×2 (08:59→21:08)
[2021-04-10] MEDS: TACROLIMUS 1 MG CAPSULE PO SCH ×2 (09:20→21:07)
[2021-04-10] MEDS: SODIUM CHLORIDE 0.9% 1,000 ML IV SCH (11:27)
[2021-04-10] MEDS ORDERED: AZITHROMYCIN 500 MG in SODIUM CHLORIDE 0.9% 250 ML IV SCH (12:00)
[2021-04-10] MEDS ORDERED: REMDESIVIR 200 MG in SODIUM CHLORIDE 0.9% 250 ML IVPB ONE (12:00)
[2021-04-10 13:41] VITALS: BP 115/75
[2021-04-10 19:24] VITALS: BP 112/75
[2021-04-10] MEDS: ATORVASTATIN 20 MG TABLET PO SCH (20:07)
[2021-04-10] MEDS: ENOXAPARIN 40 MG/0.4 ML SQ SCH (21:07)
[2021-04-11 00:09] VITALS: BP 124/72
[2021-04-11] MEDS: ALBUTEROL HFA 90 MCG/SPRAY INH PRN (00:12)
[2021-04-11] MEDS: HYDROcodone/APAP 5/325 TABLET PO PRN (00:27)
[2021-04-11 00:35] VITALS: BP 128/78
[2021-04-11] MEDS: SODIUM CHLORIDE 0.9% 1,000 ML IV SCH ×2 (03:01→17:13)
[2021-04-11 05:55] LABS: BASOPHILS % (AUTO) 0 % (0-1); EOSINOPHILS % (AUTO) 0 % (1-7); LYMPHOCYTES % (AUTO) 7 % (22-44); MEAN CORPUSCULAR HGB CONC 33.1 g/dL (32.4-35.8); MEAN PLATELET VOLUME 7.4 fL (7.4-10.4); MONOCYTES % (AUTO) 2 % (2-9); NEUTROPHILS % (AUTO) 91 % (42-75); PLATELET COUNT 216 x10^3/uL (130-400); RED BLOOD COUNT 4.11 x10^6/uL (3.82-5.3); RED CELL DISTRIBUTION WIDTH 13.8 % (9.6-15.2)
[2021-04-11 06:03] LABS: ALANINE AMINOTRANSFERASE 36 U/L (12-78); ALBUMIN 2.1 g/dL (3.4-5.0); ANION GAP 11 mmol/L (5-15); CHLORIDE 107 mmol/L (98-107); CREATININE 0.83 mg/dL (0.55-1.02)
[2021-04-11 06:06] LABS: ALKALINE PHOSPHATASE 67 U/L (45-117); BILIRUBIN,TOTAL 0.3 mg/dL (0.2-1.0); TOTAL PROTEIN 5.3 g/dL (6.4-8.2)
[2021-04-11] MEDS: INSULIN REGULAR 100 UNITS/ML, 3ML VIAL SQ-INSULIN SCH ×4 (08:10→21:34)
[2021-04-11] MEDS: DEXAMETHASONE 4 MG TABLET PO SCH ×2 (08:10→17:12)
[2021-04-11] MEDS: DOXYCYCLINE 100 MG in DEXTROSE 5% 250 ML IV SCH ×2 (08:43→21:15)
[2021-04-11] MEDS: ASPIRIN 81 MG TABLET EC PO SCH (08:43)
[2021-04-11] MEDS: ZINC SULFATE 220 MG CAPSULE PO SCH (08:44)
[2021-04-11] MEDS: ASCORBIC ACID 500 MG TABLET PO SCH ×2 (08:45→21:15)
[2021-04-11] MEDS: PANTOPRAZOLE 20MG TABLET PO SCH (08:45)
[2021-04-11] MEDS: CHOLECALCIFEROL 1,000 UNIT TABLET PO SCH (08:45)
[2021-04-11] MEDS: metFORMIN 500 MG TABLET PO SCH ×2 (08:45→21:16)
[2021-04-11] MEDS: TACROLIMUS 1 MG CAPSULE PO SCH ×2 (08:46→21:17)
[2021-04-11] MEDS: SENNA/DOCUSATE TABLET PO SCH (09:01)
[2021-04-11] MEDS: BENZONATATE 100 MG CAPSULE PO SCH ×3 (09:03→21:16)
[2021-04-11] MEDS: REMDESIVIR 100 MG in SODIUM CHLORIDE 0.9% 250 ML IVPB SCH (11:36)
[2021-04-11 13:52] VITALS: BP 128/71
[2021-04-11 19:24] VITALS: BP 136/75
[2021-04-11] MEDS: ENOXAPARIN 40 MG/0.4 ML SQ SCH (21:14)
[2021-04-11] MEDS: ATORVASTATIN 20 MG TABLET PO SCH (21:17)
[2021-04-12 01:41] VITALS: BP 130/80
[2021-04-12 05:31] LABS: CHLORIDE 110 mmol/L (98-107)
[2021-04-12 05:38] LABS: ALANINE AMINOTRANSFERASE 39 U/L (12-78); ALBUMIN 2.1 g/dL (3.4-5.0); ALKALINE PHOSPHATASE 60 U/L (45-117); ANION GAP 10 mmol/L (5-15); BILIRUBIN,TOTAL 0.4 mg/dL (0.2-1.0); CALCIUM 8.4 mg/dL (8.5-10.1); CREATININE 0.82 mg/dL (0.55-1.02)
[2021-04-12] MEDS: HYDROcodone/APAP 5/325 TABLET PO PRN (06:18)
[2021-04-12 07:42] VITALS: BP 126/82
[2021-04-12] MEDS: INSULIN REGULAR 100 UNITS/ML, 3ML VIAL SQ-INSULIN SCH ×4 (08:01→21:38)
[2021-04-12] MEDS: BENZONATATE 100 MG CAPSULE PO SCH ×3 (08:04→21:37)
[2021-04-12] MEDS: ZINC SULFATE 220 MG CAPSULE PO SCH (08:04)
[2021-04-12] MEDS: metFORMIN 500 MG TABLET PO SCH ×2 (08:04→17:37)
[2021-04-12] MEDS: PANTOPRAZOLE 20MG TABLET PO SCH (08:04)
[2021-04-12] MEDS: ASCORBIC ACID 500 MG TABLET PO SCH ×2 (08:04→21:35)
[2021-04-12] MEDS: ASPIRIN 81 MG TABLET EC PO SCH (08:04)
[2021-04-12] MEDS: CHOLECALCIFEROL 1,000 UNIT TABLET PO SCH (08:04)
[2021-04-12] MEDS: SENNA/DOCUSATE TABLET PO SCH (08:05)
[2021-04-12] MEDS: TACROLIMUS 1 MG CAPSULE PO SCH ×2 (08:05→21:35)
[2021-04-12] MEDS: DEXAMETHASONE 4 MG TABLET PO SCH ×2 (08:05→16:25)
[2021-04-12] MEDS: DOXYCYCLINE 100 MG in DEXTROSE 5% 250 ML IV SCH ×2 (09:54→21:36)
[2021-04-12] MEDS: SODIUM CHLORIDE 0.9% 1,000 ML IV SCH (09:54)
[2021-04-12] MEDS: REMDESIVIR 100 MG in SODIUM CHLORIDE 0.9% 250 ML IVPB SCH (12:14)
[2021-04-12] MEDS ORDERED: FLUCONAZOLE 200 MG TABLET ONE (13:01)
[2021-04-12] MEDS: FLUCONAZOLE 200 MG TABLET PO SCH (13:05)
[2021-04-12 13:07] VITALS: BP 129/80
[2021-04-12 21:08] VITALS: BP 134/79
[2021-04-12] MEDS: ATORVASTATIN 20 MG TABLET PO SCH (21:36)
[2021-04-12] MEDS: ENOXAPARIN 40 MG/0.4 ML SQ SCH (21:38)
[2021-04-13 00:47] VITALS: BP 152/78
[2021-04-13] MEDS: SODIUM CHLORIDE 0.9% 1,000 ML IV SCH ×2 (02:37→16:07)
[2021-04-13 05:56] LABS: ALBUMIN 2.2 g/dL (3.4-5.0); ANION GAP 10 mmol/L (5-15); CALCIUM 8.2 mg/dL (8.5-10.1); CHLORIDE 108 mmol/L (98-107)
[2021-04-13 05:59] LABS: ALANINE AMINOTRANSFERASE 43 U/L (12-78); ALKALINE PHOSPHATASE 68 U/L (45-117); BILIRUBIN,TOTAL 0.4 mg/dL (0.2-1.0); CREATININE 1.01 mg/dL (0.55-1.02)
[2021-04-13 07:57] VITALS: BP 145/67
[2021-04-13] MEDS: SENNA/DOCUSATE TABLET PO SCH (08:00)
[2021-04-13] MEDS: CHOLECALCIFEROL 1,000 UNIT TABLET PO SCH (08:10)
[2021-04-13] MEDS: ZINC SULFATE 220 MG CAPSULE PO SCH (08:10)
[2021-04-13] MEDS: INSULIN REGULAR 100 UNITS/ML, 3ML VIAL SQ-INSULIN SCH ×4 (08:10→21:27)
[2021-04-13] MEDS: ASPIRIN 81 MG TABLET EC PO SCH (08:10)
[2021-04-13] MEDS: PANTOPRAZOLE 20MG TABLET PO SCH (08:11)
[2021-04-13] MEDS: BENZONATATE 100 MG CAPSULE PO SCH ×3 (08:11→21:24)
[2021-04-13] MEDS: ASCORBIC ACID 500 MG TABLET PO SCH ×2 (08:11→21:23)
[2021-04-13] MEDS: FLUCONAZOLE 200 MG TABLET PO SCH (08:12)
[2021-04-13] MEDS: TACROLIMUS 1 MG CAPSULE PO SCH ×2 (08:12→21:23)
[2021-04-13] MEDS: metFORMIN 500 MG TABLET PO SCH ×2 (08:12→16:08)
[2021-04-13] MEDS: DEXAMETHASONE 4 MG TABLET PO SCH (08:13)
[2021-04-13] MEDS: HYDROcodone/APAP 5/325 TABLET PO PRN (08:29)
[2021-04-13] MEDS ORDERED: ALBU18HF INH (09:02)
[2021-04-13] MEDS ORDERED: DEXA4TAB66 PO (09:02)
[2021-04-13] MEDS ORDERED: DOXY100T51 PO (09:02)
[2021-04-13] MEDS ORDERED: BENZ-17 PO (09:02)
[2021-04-13] MEDS ORDERED: FLUC200T PO (09:02)
[2021-04-13] MEDS: DOXYCYCLINE 100 MG in DEXTROSE 5% 250 ML IV SCH (09:43)
[2021-04-13] MEDS: REMDESIVIR 100 MG in SODIUM CHLORIDE 0.9% 250 ML IVPB SCH (11:23)
[2021-04-13 14:00] VITALS: BP 158/95
[2021-04-13] MEDS: GUAIFENESIN/COD200MG-20MG/10ML LIQUID PO PRN (17:41)
[2021-04-13 20:45] VITALS: BP 159/90
[2021-04-13] MEDS: ATORVASTATIN 20 MG TABLET PO SCH (21:22)
[2021-04-13] MEDS: ENOXAPARIN 40 MG/0.4 ML SQ SCH (21:26)
[2021-04-13] MEDS: DOXYCYCLINE 100MG TABLET PO SCH (21:26)
[2021-04-13] MEDS: ONDANSETRON 2MG/ML, 2ML IVPush PRN (21:46)
[2021-04-14] MEDS: CALCIUM CARBONATE 500 MG TAB.CHEW PO PRN ×2 (00:32→22:56)
[2021-04-14 00:50] VITALS: BP 158/82
[2021-04-14] MEDS: SODIUM CHLORIDE 0.9% 1,000 ML IV SCH ×2 (05:18→21:48)
[2021-04-14 06:31] LABS: ALBUMIN 2.2 g/dL (3.4-5.0); ANION GAP 9 mmol/L (5-15); CALCIUM 8.5 mg/dL (8.5-10.1); CHLORIDE 109 mmol/L (98-107)
[2021-04-14 06:34] LABS: ALANINE AMINOTRANSFERASE 42 U/L (12-78); ALKALINE PHOSPHATASE 62 U/L (45-117); BILIRUBIN,TOTAL 0.6 mg/dL (0.2-1.0); CREATININE 0.94 mg/dL (0.55-1.02); TOTAL PROTEIN 4.9 g/dL (6.4-8.2)
[2021-04-14] MEDS: INSULIN REGULAR 100 UNITS/ML, 3ML VIAL SQ-INSULIN SCH ×4 (07:00→21:48)
[2021-04-14] MEDS: metFORMIN 500 MG TABLET PO SCH ×2 (07:32→16:12)
[2021-04-14] MEDS: PANTOPRAZOLE 20MG TABLET PO SCH (07:32)
[2021-04-14] MEDS: ZINC SULFATE 220 MG CAPSULE PO SCH (07:32)
[2021-04-14] MEDS: TACROLIMUS 1 MG CAPSULE PO SCH ×2 (07:32→21:18)
[2021-04-14] MEDS: ASCORBIC ACID 500 MG TABLET PO SCH ×2 (07:32→21:18)
[2021-04-14] MEDS: BENZONATATE 100 MG CAPSULE PO SCH ×3 (07:33→21:17)
[2021-04-14] MEDS: DOXYCYCLINE 100MG TABLET PO SCH ×2 (07:33→21:19)
[2021-04-14] MEDS: ASPIRIN 81 MG TABLET EC PO SCH (07:33)
[2021-04-14] MEDS: FLUCONAZOLE 200 MG TABLET PO SCH (07:33)
[2021-04-14] MEDS: CHOLECALCIFEROL 1,000 UNIT TABLET PO SCH (07:34)
[2021-04-14] MEDS: DEXAMETHASONE 4 MG TABLET PO SCH (07:34)
[2021-04-14] MEDS: SENNA/DOCUSATE TABLET PO SCH (07:34)
[2021-04-14 07:42] VITALS: BP 145/92
[2021-04-14] MEDS: REMDESIVIR 100 MG in SODIUM CHLORIDE 0.9% 250 ML IVPB SCH (11:28)
[2021-04-14 11:39] VITALS: BP 158/90
[2021-04-14] MEDS ORDERED: GUAIFENESIN/COD200MG-20MG/10ML LIQUID PO PRN (13:00)
[2021-04-14 14:55] VITALS: BP 158/90
[2021-04-14] MEDS: CEFTRIAXONE 1,000 MG in DEXTROSE 5% 50 ML IVPB SCH (15:01)
[2021-04-14] MEDS ORDERED: MELATONIN 5 MG TABLET PO SCH (21:00)
[2021-04-14] MEDS: ATORVASTATIN 20 MG TABLET PO SCH (21:18)
[2021-04-14] MEDS: THIAMINE 100MG TABLET PO SCH (21:18)
[2021-04-14] MEDS: HYDROcodone/APAP 5/325 TABLET PO PRN (21:19)
[2021-04-14] MEDS: ENOXAPARIN 40 MG/0.4 ML SQ SCH (21:20)
[2021-04-14 21:27] VITALS: BP 162/95
[2021-04-15 01:03] VITALS: BP 147/95
[2021-04-15] MEDS: GUAIFENESIN/COD200MG-20MG/10ML LIQUID PO PRN (04:45)
[2021-04-15 06:45] LABS: BASOPHILS % (AUTO) 0 % (0-1); EOSINOPHILS % (AUTO) 0 % (1-7); LYMPHOCYTES % (AUTO) 5 % (22-44); MEAN CORPUSCULAR HEMOGLOBIN 29.1 pg (27.0-34.8); MEAN CORPUSCULAR HGB CONC 34.3 g/dL (32.4-35.8); MEAN PLATELET VOLUME 7.2 fL (7.4-10.4); MONOCYTES % (AUTO) 8 % (2-9); NEUTROPHILS % (AUTO) 87 % (42-75); PLATELET COUNT 355 x10^3/uL (130-400); RED BLOOD COUNT 4.51 x10^6/uL (3.82-5.3); RED CELL DISTRIBUTION WIDTH 13.8 % (9.6-15.2)
[2021-04-15 06:50] LABS: ANION GAP 7 mmol/L (5-15); CALCIUM 8.7 mg/dL (8.5-10.1); CHLORIDE 109 mmol/L (98-107); CREATININE 1.04 mg/dL (0.55-1.02)
[2021-04-15] MEDS: INSULIN REGULAR 100 UNITS/ML, 3ML VIAL SQ-INSULIN SCH ×3 (07:00→16:50)
[2021-04-15 07:36] VITALS: BP 131/79
[2021-04-15] MEDS: BENZONATATE 100 MG CAPSULE PO SCH ×2 (09:00→16:50)
[2021-04-15] MEDS: PANTOPRAZOLE 20MG TABLET PO SCH (09:02)
[2021-04-15] MEDS: ZINC SULFATE 220 MG CAPSULE PO SCH (09:02)
[2021-04-15] MEDS: CHOLECALCIFEROL 1,000 UNIT TABLET PO SCH (09:02)
[2021-04-15] MEDS: ASCORBIC ACID 500 MG TABLET PO SCH (09:03)
[2021-04-15] MEDS: FLUCONAZOLE 200 MG TABLET PO SCH (09:03)
[2021-04-15] MEDS: DOXYCYCLINE 100MG TABLET PO SCH (09:04)
[2021-04-15] MEDS: ASPIRIN 81 MG TABLET EC PO SCH (09:04)
[2021-04-15] MEDS: THIAMINE 100MG TABLET PO SCH (09:04)
[2021-04-15] MEDS: metFORMIN 500 MG TABLET PO SCH ×2 (09:04→16:50)
[2021-04-15] MEDS: SENNA/DOCUSATE TABLET PO SCH (09:05)
[2021-04-15] MEDS: DEXAMETHASONE 4 MG TABLET PO SCH (10:24)
[2021-04-15] MEDS: TACROLIMUS 1 MG CAPSULE PO SCH (10:24)
[2021-04-15] MEDS: SODIUM CHLORIDE 0.9% 1,000 ML IV SCH (10:25)
[2021-04-15] MEDS ORDERED: CEFD300C37 PO (12:03)
[2021-04-15] MEDS ORDERED: ACET325T26 PO (12:03)
[2021-04-15] MEDS ORDERED: THIA100T67 PO (12:03)
[2021-04-15] MEDS ORDERED: Guaifenesin/Cod200mg-20MG/10ML PO (12:03)
[2021-04-15] MEDS ORDERED: MELA5TAB14 PO (12:03)
[2021-04-15] MEDS ORDERED: ZINC220C8 PO (12:03)
[2021-04-15] MEDS ORDERED: ASCO500T9 PO (12:03)
[2021-04-15 12:15] VITALS: BP 145/94
[2021-04-15] MEDS: ONDANSETRON 2MG/ML, 2ML IVPush PRN (13:01)
[2021-04-15] MEDS: CEFTRIAXONE 1,000 MG in DEXTROSE 5% 50 ML IVPB SCH (13:06)
[2021-04-15] MEDS ORDERED: PRED5TAB PO (18:30)
== END 2021-04-15 22:17 | disposition home or self-care (01) | DRG 871 ==
LOC: ED 17:05 → EDIP 20:16 → 3N 21:30
PROVIDERS: ADMIT Internal Medicine; ATTEND Internal Medicine
PROC: XW033E5 Introduction of Remdesivir Anti-infective into Peripheral Vein, Percutaneous Approach, New Technology Group 5 (ICD-10-PCS; principal; 2021-04-10)
DX: A41.89 Other specified sepsis (principal); U07.1 COVID-19; J12.82 Pneumonia due to coronavirus disease 2019; J96.01 Acute respiratory failure with hypoxia; N17.0 Acute kidney failure with tubular necrosis; E87.1 Hypo-osmolality and hyponatremia; B37.0 Candidal stomatitis; D84.9 Immunodeficiency, unspecified; T86.19 Other complication of kidney transplant; E11.65 Type 2 diabetes mellitus with hyperglycemia; E78.5 Hyperlipidemia, unspecified; I50.9 Heart failure, unspecified; I11.0 Hypertensive heart disease with heart failure; K21.9 Gastro-esophageal reflux disease without esophagitis; Y83.0 Surgical operation with transplant of whole organ as the cause of abnormal reaction of the patient, or of later complication, without mention of misadventure at the time of the procedure; Z79.4 Long term (current) use of insulin; Z79.899 Other long term (current) drug therapy; Z88.0 Allergy status to penicillin; T38.0X5A Adverse effect of glucocorticoids and synthetic analogues, initial encounter
CPT/HCPCS: 36415; 36600; 71045; 80048; 80053; 82728; 82803; 82962; 83605; 83615; 83735; 84100; 84145; 85025; 85379; 85384; 86140; 93005; 96360; G0378; J0696; J1650; J1815; J2405; J7060; J7507; J7517; J7030; J7050